=== PATIENT | male | born 1985 | race Caucasian/White ===

== ENCOUNTER 2024-04-03 11:13 | Outpatient (CLI) | payer BC, SELFPAY ==
--- NOTE | 2024-04-03 11:24 | RAD_ITS ---
PROCEDURE: Fluoroscopic guided Hip Injection DATE: April 03, 2024. INDICATION: Male, 39 years old. Chronic right hip pain. Prior nailing of the right femoral neck. PHYSICIAN: Rufino Maya M.D. MEDICATIONS: 80 mg of Kenalog and 3 cc of 0.5% Marcaine. 2% lidocaine Administered subcutaneously for local anesthesia. ACCESS SITE: Right hip. NEEDLE: 22-gauge spinal needle. FLUOROSCOPY TIME (if supplied): (2:29) minutes/seconds. 77 mGy. One image was submitted. FINDINGS: The risks, benefits, and alternatives to the procedure were explained to the patient. The specific risks of bleeding, infection, and neurovascular injury were detailed and accepted. Witnessed informed consent was obtained. A 22-gauge spinal needle was positioned under radiographic fluoroscopic localization. Approximately 2 cc of Isovue-300 instilled for localization purposes. Medication was then injected. The patient tolerated the procedure well without any immediate complications. The patient was placed supine with head elevated and returned to the floor in stable condition. RAD/Fluoro Guided Needle Placement IMPRESSION: 1. Successful fluoroscopic guided hip injection. Electronically Signed: Rufino Maya MD at 15:18 EST ,
[2024-04-03] MEDS: Triamcinolone Acetonide 40 MG/ML Vial 80 MG INTRAARTIC (11:48)
[2024-04-03] MEDS: Bupivacaine 0.5% PF 10 ML VIAL INTRAARTIC (11:48)
[2024-04-03] MEDS: Lidocaine 2% (5ml sdv) 5 ML VIAL.MPF INFILT (11:48)
== END 2024-04-03 23:59 | disposition home or self-care (01) ==
PROVIDERS: Referring Provider Orthopaedic Surgery; Visit Provider Orthopaedic Surgery
DX: M25.551 Pain in right hip (principal); M16.7 Other unilateral secondary osteoarthritis of hip
CPT/HCPCS: 20610; 77002